=== PATIENT | female | born 1990 | race Caucasian/White ===

== ENCOUNTER 2016-08-12 15:09 | Inpatient (IN) | payer OTHER ==
--- NOTE | ~2016-08-12 | CR93 ---
[facility] A Service of [facility] RADIOLOGY TEXT RESULTS PATIENT: KILEY AGUILAR LOCATION: SED : 89 UNIT #: [id number] AGE: [address]: Geri Castillo APRN SEX: F ORDER DR: [id number] [place] [id number] E MR#: [id number] Acc #: [id number] NAME: KILEY AGUILAR : 1990 SEX: F STUDY DATE/TIME: 08/12/2016 15:05 UNIT: SED ROOM: STUDY DESCRIPTION: CR Elbow Min 3 Views Lt Attending Physician: Geri Castillo A.P.R.N. Ordering Physician: Geri Castillo A.P.R.N. Primary Care Physician: Evy Woodard M.D. MEDICAL IMAGING REPORT This report is preliminary unless electronic signature is present. EXAM Left elbow 08/12 HISTORY IV drug abuser. Abscess. Evaluate for foreign body. Symptoms for 10 days. FINDINGS 3 views of the left elbow were obtained. No fracture or malalignment is seen. There is no joint effusion. There is no soft tissue gas. There are no radiopaque foreign body. IMPRESSION Negative elbow. No radiopaque foreign bodies are seen and there is no soft tissue gas. The bones are normal. Dictated by... Jorge Calderon Jr., M.D. THIS IS AN ELECTRONICALLY VERIFIED REPORT Jorge Calderon Jr., M.D. at 08/13/2016 8:11 AM DARSHANA/elsa TD: 08/12/2016 16:34 JOB #: [id number] MEDICAL IMAGING REPORT
[~2016-08-12 15:09] MED LIST: NO MEDICATIONS
[2016-08-12 15:36] LABS: BASOPHIL# 0.1 X10e3 (0-0.3); BASOPHIL% 0.4 % (0-2.5); EOSINOPHIL# 0.1 X10e3 (0-0.7); EOSINOPHIL% 0.7 % (0.0-7.0); HEMATOCRIT 45.4 % (35.0-45.0); HEMOGLOBIN 15.1 gm/dL (12.0-16.0); LYMPHOCYTE# 1.2 X10e3 (1.0-3.5); LYMPHOCYTE% 9.1 % (17.0-45.0); MEAN CELL VOLUME 87.2 FL (83-96); MEAN CORPUSCULAR HEMOGLOBIN 29.1 PG (28-34); MEAN CORPUSCULAR HGB CONC 33.3 g/dL (30-36); MEAN PLATELET VOLUME 7.7 FL (6.5-11.5); MONOCYTE% 7.4 % (3.0-12.0); NEUTROPHIL# 11.1 X10e3 (1.5-7.1); NEUTROPHIL% 82.4 % (40-75); PLATELET COUNT 303 X10e3 (140-420); RED CELL DISTRIBUTION WIDTH 13.1 % (11.0-15.5); WHITE BLOOD COUNT 13.5 X10e3 (4.0-10.5)
[2016-08-12 15:41] LABS: DIFF IND NO
[2016-08-12 16:01] LABS: BLOOD UREA NITROGEN 11 mg/dL (9-23); BUN/CREATININE RATIO 13.75; CALCIUM SERUM 9.3 mg/dL (8.4-10.2); CARBON DIOXIDE 30 mmol/L (22-31); CHLORIDE 98 mmol/L (100-111); CREATININE SERUM 0.8 mg/dL (0.6-1.4); GLOM FILT RATE Estimated ABOVE60 mL/min (>60); GLUCOSE FASTING 93 mg/dL (70-110); POTASSIUM 3.6 mmol/L (3.5-5.1); SODIUM 137 mmol/L (135-145)
[2016-08-16] MEDS ORDERED: NEURONTIN100 MG PO (12:23)
[2016-08-16] MEDS ORDERED: BACTROBAN15 GM TOP (12:24)
[2016-08-16] MEDS ORDERED: KEFLEX500 M2 PO (12:24)
[2016-08-16] MEDS ORDERED: MOTRIN600 M1 PO (12:25)
[2016-08-16] MEDS ORDERED: ARTHRITIS PAIN650 M4 PO (12:25)
[2016-08-16] MEDS ORDERED: DAKIN'S473 ML MC (12:26)
== END 2016-08-16 13:38 | disposition home health service (06) | DRG 854 ==
LOC: SED 15:09 → C4C 20:00
PROVIDERS: Nurse Practitioner
PROC: 0JBH0ZZ Excision of Left Lower Arm Subcutaneous Tissue and Fascia, Open Approach (ICD-10-PCS; principal; 2016-08-14)
DX: A41.9 Sepsis, unspecified organism (principal); E44.1 Mild protein-calorie malnutrition; L02.414 Cutaneous abscess of left upper limb; L03.114 Cellulitis of left upper limb; L02.512 Cutaneous abscess of left hand; F17.210 Nicotine dependence, cigarettes, uncomplicated; F11.10 Opioid abuse, uncomplicated; F13.10 Sedative, hypnotic or anxiolytic abuse, uncomplicated; S61.002D Unspecified open wound of left thumb without damage to nail, subsequent encounter
CPT/HCPCS: 10060; 36415; 73080; 80048; 80053; 80074; 80202; 80307; 83605; 85025; 87070; 87075; 87077; 87205; 87806; 96374; 96375; 99285; J0696; J1170; J1650; J1885; J2250; J2270; J2405; J2543; J2550; J3010; J3370